=== PATIENT | male | born 1940 | race Caucasian/White ===

== ENCOUNTER 2017-03-22 01:37 | Emergency (ER) | payer MEDICARE, MEDICAID ==
[2017-03-22] MEDS ORDERED: HYDROmorphone 1 MG/ML Syringe IM ONE (01:51)
--- NOTE | 2017-03-22 02:19 | EDM.PDOC ---
[id number] [facility] Time Seen by Provider: 03/22/17 02:05 Source of Information: Reports: Patient, EMS History Limitations: Reports: No Limitations - History of Present Illness INITIAL COMMENTS - FREE TEXT/NARRATIVE: 76-year-old male was resting quietly at home when he awoke with a stabbing pain in his right neck and upper right shoulder posteriorly. It hurt to lay down but felt better sitting up. He has had this pain before but it usually resolves after a few minutes, tonight it persisted so he called the ambulance. He appears entirely comfortable, has no shortness of breath or diaphoresis, no nausea or vomiting. Location: Reports: Neck, Upper Extremity, Right (Posterior shoulder) Neck Pain Score (Numeric/FACES): 6 - Related Data Allergies Allergy/AdvReac Type Severity Reaction Status Date / Time Fish Containing Products Allergy Severe Anaphylactic Verified 03/22/17 02:11 Shock iodine Allergy Severe Anaphylactic Verified 03/22/17 02:11 Shock lisinopril AdvReac Intermediate Cough Verified 03/22/17 02:11 Home Meds: Home Meds Furosemide [Furosemide] 20 mg PO DAILY PRN 03/29/14 [History] Insulin Glarg,Human.Rec.Analog [Lantus] 50 unit SUBCUT BEDTIME 03/29/14 [History ] Insulin Lispro [Humalog] 15 unit SUBCUT TID 03/29/14 [History] Clopidogrel [Plavix] 75 mg PO DAILY 05/28/14 [History] Aspirin [Shoaib Chewable] 81 mg PO DAILY 08/11/14 [History] Metoprolol Succinate 25 mg PO DAILY 08/11/14 [History] Losartan [Cozaar] 25 mg PO DAILY 09/06/14 [History] diphenhydrAMINE [Benadryl] 50 mg PO BID PRN 09/06/14 [History] Social & Family History - Tobacco Use Smoking Status *Q: Former Smoker Years of Tobacco use: 35 Used Tobacco, but Quit: Yes Month Tobacco Last Used: 20 years Second Hand Smoke Exposure: No - Alcohol Use Days Per Week of Alcohol Use: 7 Number of Drinks Per Day: 3 Total Drinks Per Week: 21 - Recreational Drug Use Recreational Drug Use: No ED ROS GENERAL - Review of Systems Review Of Systems: See Below Constitutional: Denies: Fever, Chills Respiratory: Denies: Shortness of Breath Cardiovascular: Denies: Chest Pain, Lightheadedness, Palpitations GI/Abdominal: Denies: Abdominal Pain : Reports: Other (Despite being on peritoneal dialysis he does make urine) Skin: Reports: Pruritis (Chronic rash), Other (No jaundice) Neurological: Denies: Headache ED EXAM, UPPER BACK/NECK PAIN - Physical Exam Exam: See Below Exam Limited By: No Limitations General Appearance: Alert, No Apparent Distress Head Exam: Atraumatic Neck Exam: Paraspinous Muscle Tender (Patient has some tenderness to the paraspinous muscles of the right lower cervical spine extending into the trapezius on the right side) Cardiovascular/Respiratory: Regular Rate, Rhythm, Normal Breath Sounds, No Respiratory Distress Neurologic: Normal Mood/Affect Skin Exam: Other (Widespread superficial excoriations were present) Course - Vital Signs Last Recorded V/S: Last Vital Signs Temp 98 F 03/22/17 02:48 Pulse 90 03/22/17 02:48 Resp 16 03/22/17 02:48 BP 140/62 03/22/17 02:48 Pulse Ox 99 03/22/17 02:48 - Orders/Labs/Meds Meds: Medications Discontinued Medications Generic Name Dose Route Start Last Admin Trade Name Freddyq PRN Reason Stop Dose Admin Hydromorphone HCl 1 mg 03/22/17 01:51 03/22/17 02:16 Dilaudid IM 03/22/17 01:52 1 mg ONETIME ONE Administration - Re-Assessments/Exams Free Text/Narrative Re-Assessment/Exam: 03/22/17 02:18 Patient was given 1 mg of Dilaudid IM and allowed to rest and watch TV. He remained comfortable. 03/22/17 02:55 45 minutes after the Dilaudid injection he said he felt fine. He was discharged. Departure - Departure Time of Disposition: 07:12 Disposition: Home, Self-Care 01 Condition: good Clinical Impression: Muscle spasms of neck - Discharge Information Instructions: Muscle Cramps and Spasms, [id number] Referrals: PCP,None [Primary Care Provider] - Forms: ED Department Discharge Care Plan Goals: Continue your current medications as prescribed, rest and fluids were important. Recheck in 2-3 days if spasms persist, physical therapy may be beneficial.
[2017-03-22 02:49] VITALS: BP 140/62
== END 2017-03-22 07:12 | disposition home or self-care (01) ==
LOC: JP.ED 01:37
DX: M62.838 Other muscle spasm (principal); Z91.013 Allergy to seafood; Z88.8 Allergy status to other drugs, medicaments and biological substances; Z79.4 Long term (current) use of insulin; Z79.82 Long term (current) use of aspirin; Z79.899 Other long term (current) drug therapy; Z87.891 Personal history of nicotine dependence
CPT/HCPCS: 82962; 96372; 99284; J1170

== ENCOUNTER 2018-02-03 13:00 | Emergency (ER) | payer MEDICARE, MEDICAID ==
--- NOTE | 2018-02-03 13:32 | EDM.PDOC ---
ED HPI GENERAL MEDICAL PROBLEM - General Chief Complaint: Syncope Stated Complaint: [facility] Time Seen by Provider: 02/03/18 13:15 Source of Information: Reports: Patient, EMS, Old Records, RN History Limitations: Reports: No Limitations - History of Present Illness INITIAL COMMENTS - FREE TEXT/NARRATIVE: 77 yo male on dialysis was just starting his twice weekly 4 hour dialysis run today when he developed diaphoresis and weakness. The lights got blurry and he has some L calf cramping. His run was cut short after about 90 minutes due to his sx's. He had an [place] in the distant past with stenting. He has had no heart issues since getting the stents. His BS at dialysis never got below 100, he does get sx's from hypoglycemia when he is at or below 60. He was given some sugar at dialysis and it did not make him feel any better. Now in the ER via EMS he no longer has diaphoresis, but continues to feel weak. He denies chest pain. Onset: Today Onset Date: 02/03/18 Onset Time: 11:30 Duration: Hour(s): (2), Improving Location: Reports: Generalized Quality: Reports: Other (no pain except for the muscle cramps in his L calf. ) Severity: Moderate Improves with: Reports: Other (? time) Worsens with: Reports: Other (unknown) Context: Reports: Other (dialysis patient with known CAD) Associated Symptoms: Reports: Diaphoresis, Weakness. Denies: Confusion, Chest Pain, Cough, Fever/Chills, Headaches, Nausea/Vomiting, Shortness of Breath Treatments CYLINDER HONER: Reports: Other (see below) (was given candy at dialysis) Denies Pain Score (Numeric/FACES): 0 - Related Data Allergies Allergy/AdvReac Type Severity Reaction Status Date / Time Fish Containing Products Allergy Severe Anaphylactic Verified 02/03/18 13:22 Shock iodine Allergy Severe Anaphylactic Verified 02/03/18 13:22 Shock benazepril [From Lotensin] Allergy Cough Verified 02/03/18 13:29 lisinopril AdvReac Intermediate Cough Verified 02/03/18 13:22 Home Meds: Home Meds Furosemide 20 mg PO DAILY PRN 03/29/14 [History] Insulin Glarg,Human.Rec.Analog [Lantus] 35 - 40 unit SUBCUT BEDTIME 03/29/14 [ History] Insulin Lispro [Humalog] 15 unit SUBCUT TID 03/29/14 [History] Clopidogrel [Plavix] 25 mg PO ASDIRECTED 05/28/14 [History] Aspirin [Shoaib Chewable] 81 mg PO ASDIRECTED 08/11/14 [History] Metoprolol Succinate 25 mg PO DAILY 08/11/14 [History] Losartan [Cozaar] 25 mg PO DAILY 09/06/14 [History] diphenhydrAMINE [Benadryl] 50 mg PO BID PRN 09/06/14 [History] Carvedilol [Coreg] 12.5 mg PO ASDIRECTED 02/03/18 [History] Latanoprost 1 drop TOP BID 02/03/18 [History] Prednisone [IJD: Prednisone] 10 mg PO DAILY 02/03/18 [History] Past Medical History HEENT History: Reports: Glaucoma Cardiovascular History: Reports: Stents Genitourinary History: Reports: Acute Renal Failure, Dialysis Endocrine/Metabolic History: Reports: Diabetes, Type II - Infectious Disease History Infectious Disease History: Reports: Chicken Pox - Past Surgical History HEENT Surgical History: Reports: Visual Musculoskeletal Surgical History: Reports: Amputation Social & Family History - Tobacco Use Smoking Status *Q: Former Smoker Years of Tobacco use: 35 Used Tobacco, but Quit: Yes Month/Year Tobacco Last Used: 20 years Second Hand Smoke Exposure: No - Caffeine Use Caffeine Use: Reports: Coffee, Soda - Alcohol Use Days Per Week of Alcohol Use: 7 Number of Drinks Per Day: 3 Total Drinks Per Week: 21 - Recreational Drug Use Recreational Drug Use: No ED ROS GENERAL - Review of Systems Review Of Systems: See Below Constitutional: Reports: Weakness, Diaphoresis. Denies: Fever, Chills, Night Sweats HEENT: Reports: No Symptoms Respiratory: Reports: No Symptoms Cardiovascular: Reports: Lightheadedness Endocrine: Reports: No Symptoms GI/Abdominal: Reports: No Symptoms : Reports: No Symptoms Musculoskeletal: Reports: No Symptoms Skin: Reports: No Symptoms Neurological: Reports: No Symptoms - Physical Exam Exam: See Below Exam Limited By: No Limitations General Appearance: Alert, WD/WN, No Apparent Distress Eye Exam: Bilateral Eye: Normal Inspection Ears: Normal External Exam, Normal Canal, Hearing Grossly Normal, Normal TMs Nose: Normal Inspection, Normal Mucosa, No Blood Throat/Mouth: Normal Inspection, Normal Lips, Normal Oropharynx, Normal Voice, No Airway Compromise Head Exam: Atraumatic, Normocephalic Neck: Normal Inspection, Supple, Non-Tender Respiratory/Chest: No Respiratory Distress, Lungs Clear, Normal Breath Sounds, No Accessory Muscle Use, Chest Non-Tender Cardiovascular: Regular Rate, Rhythm, No Edema GI/Abdominal: Normal Bowel Sounds, Soft, Non-Tender Neuro Exam (Abbreviated): Alert, Oriented, CN II-XII Intact, Normal Cognition, No Motor/Sensory Deficits Extremities: Normal Range of Motion, Non-Tender, No Pedal Edema, Other (R BKA) Psychiatric: Normal Affect, Normal Mood Skin Exam: Warm, Dry, Intact, Normal Color, No Rash EKG INTERPRETATION EKG Date: 02/03/18 Time: 12:55 Rhythm: NSR Rate (Beats/Min): 75 [place]: Normal P-Wave: Present QRS: Normal ST-T: Normal QT: Normal Comparison: No Change Course - Vital Signs Text/Narrative:: Feeling much better after 500 ml of NS IV. Last Recorded V/S: Last Vital Signs Temp 36.2 C 02/03/18 13:55 Pulse 86 02/03/18 13:55 Resp 14 02/03/18 13:55 BP 124/68 02/03/18 15:40 Pulse Ox 100 02/03/18 13:55 - Orders/Labs/Meds Orders: Active Orders 24 hr Category Date Time Status Cardiac Monitoring [RC] .As Directed Care 02/03/18 13:25 Active EKG Documentation Completion [RC] ASDIRECTED Care 02/03/18 13:26 Active UA W/MICROSCOPIC [URIN] Stat Lab 02/03/18 13:25 Ordered EKG 12 Lead [EK] Routine Ther 02/03/18 13:26 Stop Req Labs: Laboratory Tests 02/03/18 02/03/18 Range/Units 13:30 13:30 WBC 8.3 (4.5-11.0) K/uL RBC 4.15 L (4.30-5.90) M/uL Hgb 12.3 (12.0-15.0) g/dL Hct 39.0 L (40.0-54.0) % MCV 94 (80-98) fL MCH 30 (27-31) pg MCHC 32 (32-36) % Plt Count 244 (150-400) K/uL Sodium 132 L (140-148) mmol/L Potassium 4.5 (3.6-5.2) mmol/L Chloride 100 (100-108) mmol/L Carbon Dioxide 27 (21-32) mmol/L Anion Gap 9.5 (5.0-14.0) mmol/L BUN 39 H (7-18) mg/dL Creatinine 3.4 H (0.8-1.3) mg/dL Est Cr Clr Drug Dosing 19.69 mL/min Estimated GFR (MDRD) 18 L (>60) Glucose 102 (74-106) mg/dL Calcium 8.1 L (8.5-10.1) mg/dL Magnesium 1.8 (1.8-2.4) mg/dL Troponin I < 0.017 (0.000-0.056) ng/mL Meds: Medications Discontinued Medications Generic Name Dose Route Start Last Admin Trade Name Freq PRN Reason Stop Dose Admin Sodium Chloride 500 mls @ 1,000 mls/hr 02/03/18 14:04 Normal Saline IV 02/03/18 14:33 .BOLUS ONE Sodium Chloride 1,000 mls @ 1,000 mls/hr 02/03/18 14:46 02/03/18 14:49 Normal Saline IV 02/03/18 15:45 1,000 mls/hr .BOLUS ONE Administration Departure - Departure Time of Disposition: 15:46 Disposition: Home, Self-Care 01 Condition: Good Clinical Impression: Mild dehydration - Discharge Information Referrals: Xander Machado MD [Primary Care Provider] - Forms: ED Department Discharge - My Orders Last 24 Hours: My Active Orders 02/03/18 13:25 Cardiac Monitoring [RC] .As Directed UA W/MICROSCOPIC [URIN] Stat 02/03/18 13:26 EKG Documentation Completion [RC] ASDIRECTED EKG 12 Lead [EK] Routine - Assessment/Plan Last 24 Hours: My Active Orders 02/03/18 13:25 Cardiac Monitoring [RC] .As Directed UA W/MICROSCOPIC [URIN] Stat 02/03/18 13:26 EKG Documentation Completion [RC] ASDIRECTED EKG 12 Lead [EK] Routine
[2018-02-03] MEDS ORDERED: Sodium Chloride 0.9% 500 ML IV ONE (14:04)
[2018-02-03] MEDS ORDERED: Sodium Chloride 0.9% 1,000 ML IV ONE (14:46)
[2018-02-03 15:49] VITALS: BP 126/70
== END 2018-02-03 16:00 | disposition home or self-care (01) ==
LOC: JP.ED 13:00
DX: E86.0 Dehydration (principal); E11.9 Type 2 diabetes mellitus without complications; Z79.4 Long term (current) use of insulin; Z79.899 Other long term (current) drug therapy; Z91.018 Allergy to other foods; Z88.8 Allergy status to other drugs, medicaments and biological substances; Z87.891 Personal history of nicotine dependence; Z99.2 Dependence on renal dialysis
CPT/HCPCS: 36415; 80048; 83735; 84484; 85027; 96360; 99284; J7040

== ENCOUNTER 2018-03-11 14:48 | Emergency (ER) | payer MEDICARE, MEDICAID ==
[2018-03-11 15:17] VITALS: BP 116/52
[2018-03-11] MEDS ORDERED: Sodium Chloride 0.9% 1,000 ML IV SCH (15:45)
--- NOTE | 2018-03-11 17:16 | EDM.PDOC ---
<Augusta Villaseñor - Last Filed: 03/11/18 17:35> ED HPI GENERAL MEDICAL PROBLEM - General Chief Complaint: General Time Seen by Provider: 03/11/18 15:15 Source of Information: Reports: Patient History Limitations: Reports: No Limitations - History of Present Illness INITIAL COMMENTS - FREE TEXT/NARRATIVE: Pt is not feeling well today. He states for the past few days he is vomiting after he eats. He is feeling very fatiqued. He does have diabetes and he has had one ambutation of the rt lower leg. He has pain in both of his shoulders. He has not had chest pain. Onset: Gradual, Other ( He has not been doing well for the past 2-3 days. ) Duration: Day(s): Location: Reports: Abdomen, Other ( Pt is vomiting after he eats. ) Associated Symptoms: Reports: Nausea/Vomiting - Related Data Allergies Allergy/AdvReac Type Severity Reaction Status Date / Time Fish Containing Products Allergy Severe Anaphylactic Verified 03/11/18 15:15 Shock iodine Allergy Severe Anaphylactic Verified 03/11/18 15:15 Shock benazepril [From Lotensin] Allergy Cough Verified 03/11/18 15:15 lisinopril AdvReac Intermediate Cough Verified 03/11/18 15:15 Home Meds: Home Meds Furosemide 20 mg PO DAILY PRN 03/29/14 [History] Insulin Glarg,Human.Rec.Analog [Lantus] 35 - 40 unit SUBCUT BEDTIME 03/29/14 [ History] Insulin Lispro [Humalog] 15 unit SUBCUT TID 03/29/14 [History] Clopidogrel [Plavix] 25 mg PO ASDIRECTED 05/28/14 [History] Aspirin [Shoaib Chewable] 81 mg PO ASDIRECTED 08/11/14 [History] Metoprolol Succinate 25 mg PO DAILY 08/11/14 [History] Losartan [Cozaar] 25 mg PO DAILY 09/06/14 [History] diphenhydrAMINE [Benadryl] 50 mg PO BID PRN 09/06/14 [History] Carvedilol [Coreg] 12.5 mg PO ASDIRECTED 02/03/18 [History] Latanoprost 1 drop TOP BID 02/03/18 [History] Prednisone [IJD: Prednisone] 10 mg PO DAILY 03/30/18 [History] Past Medical History HEENT History: Reports: Glaucoma Cardiovascular History: Reports: Stents Genitourinary History: Reports: Acute Renal Failure, Dialysis Endocrine/Metabolic History: Reports: Diabetes, Type II - Infectious Disease History Infectious Disease History: Reports: Chicken Pox - Past Surgical History HEENT Surgical History: Reports: Visual GI Surgical History: Reports: Colonoscopy Musculoskeletal Surgical History: Reports: Amputation Social & Family History - Tobacco Use Smoking Status *Q: Never Smoker Years of Tobacco use: 35 Packs/Tins Daily: 1 Used Tobacco, but Quit: Yes Month/Year Tobacco Last Used: 20 years Second Hand Smoke Exposure: No - Caffeine Use Caffeine Use: Reports: Coffee, Soda - Alcohol Use Days Per Week of Alcohol Use: 7 Number of Drinks Per Day: 3 Total Drinks Per Week: 21 - Recreational Drug Use Recreational Drug Use: No ED ROS GENERAL - Review of Systems Review Of Systems: See Below Constitutional: Reports: No Symptoms, Diaphoresis HEENT: Reports: No Symptoms Respiratory: Reports: No Symptoms Cardiovascular: Reports: No Symptoms Endocrine: Reports: No Symptoms GI/Abdominal: Reports: Nausea, Vomiting, Other ( Pt has been vomiting after he eats) : Reports: No Symptoms Musculoskeletal: Reports: No Symptoms Skin: Reports: No Symptoms Neurological: Reports: Headache, Other (pt has had a low grade headache. ) Psychiatric: Reports: Anxiety ED EXAM, GENERAL - Physical Exam Exam: See Below Free Text/Narrative:: pt is alert and oriented with a bs of 50. He has shoulder pain. He had an Mi which only presented with arm pain. Exam Limited By: No Limitations General Appearance: Alert, No Apparent Distress, Other (pupils are equal and reactive. ) Ears: Normal TMs Nose: Normal Inspection Throat/Mouth: Normal Inspection Head: Atraumatic Neck: Normal Inspection Respiratory/Chest: No Respiratory Distress Cardiovascular: Regular Rate, Rhythm GI/Abdominal: Soft, Non-Tender Rectal (Males) Exam: Deferred Back Exam: Normal Inspection Extremities: Other ( pt had an amputatipon on the rt and he has mild edema on the left. ) Neurological: Alert, Oriented, Normal Cognition Course - Vital Signs Last Recorded V/S: Last Vital Signs Temp 97.5 F 03/11/18 15:24 Pulse 82 03/11/18 15:24 Resp 16 03/11/18 15:24 BP 116/52 L 05/05/18 15:24 Pulse Ox 98 03/11/18 15:24 - Orders/Labs/Meds Orders: Active Orders 24 hr Category Date Time Status Cardiac Monitoring [RC] .As Directed Care 03/11/18 15:39 Active EKG Documentation Completion [RC] ASDIRECTED Care 03/11/18 15:26 Active UA W/MICROSCOPIC [URIN] Urgent Lab 03/11/18 15:26 Ordered Sodium Chloride 0.9% [Normal Saline] 1,000 ml Med 03/11/18 15:45 Active IV ASDIRECTED EKG 12 Lead [EK] Routine Ther 03/11/18 15:26 Ordered Medication Orders Sodium Chloride (Normal Saline) 1,000 mls @ 999 mls/hr IV ASDIRECTED AUBREY Last Admin: 03/11/18 16:00 Dose: 999 mls/hr Labs: Laboratory Tests 03/11/18 03/11/18 03/11/18 Range/Units 15:37 15:37 15:37 WBC 9.9 (4.5-11.0) K/uL RBC 4.41 (4.30-5.90) M/uL Hgb 13.5 (12.0-15.0) g/dL Hct 42.3 (40.0-54.0) % MCV 96 (80-98) fL MCH 31 (27-31) pg MCHC 32 (32-36) % Plt Count 319 (150-400) K/uL Neut % (Auto) 65 (36-66) % Lymph % (Auto) 16 L (24-44) % [place] % (Auto) 9 H (2-6) % Eos % (Auto) 10 H (2-4) % Baso % (Auto) 1 (0-1) % Sodium 139 L (140-148) mmol/L Potassium 4.2 (3.6-5.2) mmol/L Chloride 101 (100-108) mmol/L Carbon Dioxide 29 (21-32) mmol/L Anion Gap 13.2 (5.0-14.0) mmol/L BUN 21 H (7-18) mg/dL Creatinine 4.9 H* (0.8-1.3) mg/dL Est Cr Clr Drug Dosing 13.66 mL/min Estimated GFR (MDRD) 12 L (>60) Glucose 56 L (74-106) mg/dL Calcium 8.5 (8.5-10.1) mg/dL Total Bilirubin 0.7 D (0.2-1.0) mg/dL AST 16 (15-37) U/L ALT 16 (12-78) U/L Alkaline Phosphatase 85 (46-116) U/L Troponin I 0.013 (0.000-0.056) ng/mL C-Reactive Protein (0.0-0.3) mg/dL Total Protein 6.9 (6.4-8.2) g/dL Albumin 3.5 (3.4-5.0) g/dL Globulin 3.4 (2.3-3.5) g/dL Albumin/Globulin Ratio 1.0 L (1.2-2.2) TSH, Ultra Sensitive (0.358-3.740) uIU/mL 03/11/18 03/11/18 03/11/18 Range/Units 15:37 17:40 18:35 WBC (4.5-11.0) K/uL RBC (4.30-5.90) M/uL Hgb (12.0-15.0) g/dL Hct (40.0-54.0) % MCV (80-98) fL MCH (27-31) pg MCHC (32-36) % Plt Count (150-400) K/uL Neut % (Auto) (36-66) % Lymph % (Auto) (24-44) % [place] % (Auto) (2-6) % Eos % (Auto) (2-4) % Baso % (Auto) (0-1) % Sodium (140-148) mmol/L Potassium (3.6-5.2) mmol/L Chloride (100-108) mmol/L Carbon Dioxide (21-32) mmol/L Anion Gap (5.0-14.0) mmol/L BUN (7-18) mg/dL Creatinine (0.8-1.3) mg/dL Est Cr Clr Drug Dosing mL/min Estimated GFR (MDRD) (>60) Glucose (74-106) mg/dL Calcium (8.5-10.1) mg/dL Total Bilirubin (0.2-1.0) mg/dL AST (15-37) U/L ALT (12-78) U/L Alkaline Phosphatase (46-116) U/L Troponin I < 0.017 (0.000-0.056) ng/mL C-Reactive Protein 0.77 H (0.0-0.3) mg/dL Total Protein (6.4-8.2) g/dL Albumin (3.4-5.0) g/dL Globulin (2.3-3.5) g/dL Albumin/Globulin Ratio (1.2-2.2) TSH, Ultra Sensitive 1.167 (0.358-3.740) uIU/mL Meds: Medications Generic Name Dose Route Start Last Admin Trade Name Freq PRN Reason Stop Dose Admin Sodium Chloride 1,000 mls @ 999 mls/hr 03/11/18 15:45 03/11/18 16:00 Normal Saline IV 999 mls/hr ASDIRECTED AUBREY Administration Discontinued Medications Generic Name Dose Route Start Last Admin Trade Name Freq PRN Reason Stop Dose Admin Pantoprazole Sodium 40 mg 03/11/18 17:44 03/11/18 18:26 Protonix Iv IVPUSH 03/11/18 17:45 40 mg ONETIME ONE Administration Departure - Departure Time of Disposition: 17:09 Disposition: Home, Self-Care 01 Clinical Impression: Weakness Nausea and vomiting Qualifiers: Vomiting type: unspecified Vomiting Intractability: non-intractable Qualified Code(s): R11.2 - Nausea with vomiting, unspecified - Discharge Information Instructions: Nausea and Vomiting, Adult Referrals: Xander Machado MD [Primary Care Provider] - Forms: ED Department Discharge Care Plan Goals: Consider 20 mg of omeprazole daily to settle your stomach. Resume your other regular medications and recheck with your regular doctor next week if not improving satisfactorily. Advance diet as tolerated. <Fabricio Castrejon - Last Filed: 03/11/18 19:07> Course - Re-Assessments/Exams Free Text/Narrative Re-Assessment/Exam: 03/11/18 19:05 77-year-old male evaluated and treated by Dr. Villaseñor. Care was turned over pending a second troponin, which returned 0. He was recommended to the patient he should take 20 mg of omeprazole daily and follow up with his primary care next week. Departure - Departure Condition: Good
[2018-03-11] MEDS ORDERED: Pantoprazole 40 MG Vial IVPUSH ONE (17:44)
== END 2018-03-11 19:28 | disposition home or self-care (01) ==
LOC: JP.ED 14:48
DX: R11.2 Nausea with vomiting, unspecified (principal); E11.9 Type 2 diabetes mellitus without complications; Z87.891 Personal history of nicotine dependence; Z79.4 Long term (current) use of insulin; Z79.899 Other long term (current) drug therapy; Z91.013 Allergy to seafood; Z88.8 Allergy status to other drugs, medicaments and biological substances
CPT/HCPCS: 36415; 80053; 82962; 84443; 84484; 85025; 86140; 93005; 96361; 96374; 99284; C9113; J7040

== ENCOUNTER 2018-05-01 13:27 | Emergency (ER) | payer MEDICARE, MEDICAID ==
[2018-05-01 13:44] VITALS: BP 174/69
[2018-05-01] MEDS ORDERED: Bisacodyl 10 MG Supp RECTAL ONE (14:10)
[2018-05-01] MEDS ORDERED: Ondansetron 4 MG Tab.DIS PO ONE (14:10)
--- NOTE | 2018-05-01 14:16 | EDM.PDOC ---
ED HPI GENERAL MEDICAL PROBLEM - General Chief Complaint: General Stated Complaint: NOT FEELING WELL Time Seen by Provider: 05/01/18 14:00 Source of Information: Reports: Patient, Old Records, RN History Limitations: Reports: Other (poor historian) - History of Present Illness INITIAL COMMENTS - FREE TEXT/NARRATIVE: 77 yo male with CRF and who normally get dialyzed on Mondays and Fridays presents with onset of diarrhea, nausea, and vomiting since last Tuesday. The diarrhea has resolved and he has no BM since Tuesday. Is not vomiting for the past couple of days. Feels weak. Has not notified or seen his primary about this. He skipped dialysis on Tuesday and today due to not feeling well. BP running high for him. No fevers. Onset: Sudden Onset Date: 04/28/18 Duration: Day(s):, Waxing/Waning Location: Reports: Abdomen Quality: Reports: Other (mild cramping) Severity: Mild Improves with: Reports: None Worsens with: Reports: None (Has been able to eat.) Context: Reports: Other (CRF on 2 per week dialysis tx's.) Associated Symptoms: Reports: Nausea/Vomiting, Weakness. 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: Other (see below) (none) - Related Data Allergies Allergy/AdvReac Type Severity Reaction Status Date / Time Fish Containing Products Allergy Severe Anaphylactic Verified 03/11/18 15:15 Shock iodine Allergy Severe Anaphylactic Verified 03/11/18 15:15 Shock benazepril [From Lotensin] Allergy Cough Verified 03/11/18 15:15 lisinopril AdvReac Intermediate Cough Verified 03/11/18 15:15 Home Meds: Home Meds Furosemide 20 mg PO DAILY PRN 03/29/14 [History] Insulin Glarg,Human.Rec.Analog [Lantus] 35 - 40 unit SUBCUT BEDTIME 03/29/14 [ History] Insulin Lispro [Humalog] 15 unit SUBCUT TID 03/29/14 [History] Aspirin [Shoaib Chewable] 81 mg PO ASDIRECTED 08/11/14 [History] diphenhydrAMINE [Benadryl] 50 mg PO BID PRN 09/06/14 [History] Latanoprost 1 drop TOP BID 02/03/18 [History] Prednisone [IJD: Prednisone] 10 mg PO ASDIRECTED 02/03/18 [History] Ondansetron [Zofran ODT] 4 mg PO Q6H PRN #7 tab.dis 05/01/18 [Rx] Pyridostigmine [Mestinon] 90 mg PO TID 05/01/18 [History] Past Medical History HEENT History: Reports: Glaucoma Cardiovascular History: Reports: Stents Genitourinary History: Reports: Acute Renal Failure, Dialysis Endocrine/Metabolic History: Reports: Diabetes, Type II - Infectious Disease History Infectious Disease History: Reports: Chicken Pox - Past Surgical History HEENT Surgical History: Reports: Visual GI Surgical History: Reports: Colonoscopy Musculoskeletal Surgical History: Reports: Amputation Social & Family History - Tobacco Use Smoking Status *Q: Former Smoker Used Tobacco, but Quit: Yes Month/Year Tobacco Last Used: 80 - Caffeine Use Caffeine Use: Reports: Coffee - Alcohol Use Days Per Week of Alcohol Use: 7 Number of Drinks Per Day: 1 Total Drinks Per Week: 7 - Recreational Drug Use Recreational Drug Use: No ED ROS GENERAL - Review of Systems Review Of Systems: See Below Constitutional: Reports: Malaise, Weakness. Denies: Fever HEENT: Reports: No Symptoms Respiratory: Reports: No Symptoms Cardiovascular: Reports: No Symptoms Endocrine: Reports: No Symptoms GI/Abdominal: Reports: Abdominal Pain (mild, intermittent cramping), Constipation (since Tuesday), Diarrhea (now resolved), Nausea. Denies: Black Stool, Bloody Stool, Hematemesis, Hematochezia, Melena, Vomiting : Reports: No Symptoms Musculoskeletal: Reports: No Symptoms Skin: Reports: No Symptoms Neurological: Reports: No Symptoms Psychiatric: Reports: No Symptoms ED EXAM, GENERAL - Physical Exam Exam: See Below Exam Limited By: No Limitations General Appearance: Alert, WD/WN, No Apparent Distress Eye Exam: Bilateral Eye: Normal Inspection Ears: Normal External Exam, Normal Canal, Hearing Grossly Normal, Normal TMs Ear Exam: Bilateral Ear: Auricle Normal, Canal Normal, TM normal Nose: Normal Inspection, Normal Mucosa, No Blood Throat/Mouth: Normal Inspection, Normal Lips, Normal Oropharynx, Normal Voice, No Airway Compromise Head: Atraumatic, Normocephalic Neck: Normal Inspection, Supple Respiratory/Chest: No Respiratory Distress, Lungs Clear, Normal Breath Sounds, No Accessory Muscle Use Cardiovascular: Regular Rate, Rhythm, No Edema GI/Abdominal: Normal Bowel Sounds, Soft, Non-Tender, No Distention Back Exam: Normal Inspection. No: CVA Tenderness (R), CVA Tenderness (L) Extremities: Normal Inspection, Normal Range of Motion, Non-Tender, No Pedal Edema Neurological: Alert, Oriented, CN II-XII Intact, Normal Cognition, No Motor/ Sensory Deficits Psychiatric: Normal Affect, Normal Mood Skin Exam: Warm, Dry, Intact, Normal Color, No Rash Lymphatic: No Adenopathy Course - Vital Signs Last Recorded V/S: Last Vital Signs Temp 35.8 C 05/01/18 13:44 Pulse 81 05/01/18 13:44 Resp 18 05/01/18 13:44 BP 174/69 H 05/01/18 13:44 Pulse Ox 98 05/01/18 13:44 Orthostatic Blood Pressure [ 148/59 Standing] Orthostatic Blood Pressure [ 144/61 Sitting] Orthostatic Blood Pressure [ 144/57 Supine] - Orders/Labs/Meds Orders: Active Orders 24 hr Category Date Time Status Orthostatic Vital Signs [RC] ASDIRECTED Care 05/01/18 14:21 Active UA W/MICROSCOPIC [URIN] Stat Lab 05/01/18 13:37 Ordered Labs: Laboratory Tests 05/01/18 05/01/18 Range/Units 13:37 13:37 WBC 8.9 (4.5-11.0) K/uL RBC 4.38 (4.30-5.90) M/uL Hgb 13.5 (12.0-15.0) g/dL Hct 40.5 (40.0-54.0) % MCV 93 (80-98) fL MCH 31 (27-31) pg MCHC 33 (32-36) % Plt Count 314 (150-400) K/uL Sodium 134 L (140-148) mmol/L Potassium 5.0 (3.6-5.2) mmol/L Chloride 100 (100-108) mmol/L Carbon Dioxide 25 (21-32) mmol/L Anion Gap 14.0 (5.0-14.0) mmol/L BUN 81 H* D (7-18) mg/dL Creatinine 5.5 H* (0.8-1.3) mg/dL Est Cr Clr Drug Dosing 12.17 mL/min Estimated GFR (MDRD) 10 L (>60) Glucose 129 H (74-106) mg/dL Calcium 8.1 L (8.5-10.1) mg/dL Troponin I 0.019 (0.000-0.056) ng/mL Meds: Medications Discontinued Medications Generic Name Dose Route Start Last Admin Trade Name Freq PRN Reason Stop Dose Admin Bisacodyl 10 mg 05/01/18 14:10 05/01/18 14:18 Dulcolax RECTAL 05/01/18 14:11 10 mg ONETIME ONE Administration Ondansetron HCl 4 mg 05/01/18 14:10 05/01/18 14:18 Zofran Odt PO 05/01/18 14:11 4 mg ONETIME ONE Administration Departure - Departure Time of Disposition: 14:50 Disposition: Home, Self-Care 01 Condition: Fair Clinical Impression: Nausea CRF (chronic renal failure) Qualifiers: Chronic kidney disease stage: stage 5 Qualified Code(s): N18.5 - Chronic kidney disease, stage 5 - Discharge Information Prescriptions: Ondansetron [Zofran ODT] 4 mg PO Q6H PRN #7 tab.dis PRN Reason: Nausea Referrals: PCP,None [Primary Care Provider] - Forms: ED Department Discharge - My Orders Last 24 Hours: My Active Orders 05/01/18 13:37 UA W/MICROSCOPIC [URIN] Stat 05/01/18 14:21 Orthostatic Vital Signs [RC] ASDIRECTED - Assessment/Plan Last 24 Hours: My Active Orders 05/01/18 13:37 UA W/MICROSCOPIC [URIN] Stat 05/01/18 14:21 Orthostatic Vital Signs [RC] ASDIRECTED
== END 2018-05-01 15:20 | disposition home or self-care (01) ==
LOC: JP.ED 13:27
DX: R11.2 Nausea with vomiting, unspecified (principal); E11.22 Type 2 diabetes mellitus with diabetic chronic kidney disease; N18.5 Chronic kidney disease, stage 5; Z91.013 Allergy to seafood; Z88.8 Allergy status to other drugs, medicaments and biological substances; Z79.4 Long term (current) use of insulin; Z79.82 Long term (current) use of aspirin; Z79.899 Other long term (current) drug therapy; Z87.891 Personal history of nicotine dependence
CPT/HCPCS: 36415; 80048; 84484; 85027; 99284; A9270

== ENCOUNTER 2018-07-03 19:48 | Emergency (ER) | payer MEDICARE, MEDICAID ==
[2018-07-03] MEDS ORDERED: Sodium Chloride 0.9% 1,000 ML IV ONE (20:42)
[2018-07-03] MEDS ORDERED: Sodium Chloride 0.9% 10 ML Syringe FLUSH PRN (20:42)
[2018-07-03] MEDS ORDERED: Ondansetron 4 MG/2 ML SDV IVPUSH ONE (21:15)
[2018-07-03 21:25] VITALS: BP 139/64
--- NOTE | 2018-07-04 00:03 | EDM.PDOC ---
ED HPI GENERAL MEDICAL PROBLEM - General Chief Complaint: General Stated Complaint: ILLNESS Time Seen by Provider: 07/03/18 19:55 Source of Information: Reports: Patient History Limitations: Reports: No Limitations - History of Present Illness INITIAL COMMENTS - FREE TEXT/NARRATIVE: After dialysis today this patient began to feel weak. He's had loose but not watery stools for the past 3 days about 30 min after he eats. Therefore he hasn' t been eating. During dialysis BP dropped briefly. Epidosed seatiness. Weak ever since. HX [place] 2013, 2 stents ok since. Dialysis mon and fri. Some kidney function. Feels hungry. - Related Data Allergies Allergy/AdvReac Type Severity Reaction Status Date / Time Fish Containing Products Allergy Severe Anaphylactic Verified 03/11/18 15:15 Shock iodine Allergy Severe Anaphylactic Verified 03/11/18 15:15 Shock benazepril [From Lotensin] Allergy Cough Verified 03/11/18 15:15 lisinopril AdvReac Intermediate Cough Verified 03/11/18 15:15 Home Meds: Home Meds Furosemide 20 mg PO DAILY PRN 03/29/14 [History] Insulin Glarg,Human.Rec.Analog [Lantus] 35 - 40 unit SUBCUT BEDTIME 03/29/14 [ History] Insulin Lispro [Humalog] 15 unit SUBCUT TID 03/29/14 [History] Aspirin [Shoaib Chewable] 81 mg PO ASDIRECTED 08/11/14 [History] diphenhydrAMINE [Benadryl] 50 mg PO BID PRN 09/06/14 [History] Latanoprost 1 drop TOP BID 02/03/18 [History] Prednisone [IJD: Prednisone] 10 mg PO ASDIRECTED 02/03/18 [History] Ondansetron [Zofran ODT] 4 mg PO Q6H PRN #7 tab.dis 05/01/18 [Rx] Pyridostigmine [Mestinon] 90 mg PO TID 05/01/18 [History] Past Medical History HEENT History: Reports: Glaucoma Cardiovascular History: Reports: Stents Genitourinary History: Reports: Acute Renal Failure, Dialysis Endocrine/Metabolic History: Reports: Diabetes, Type II - Infectious Disease History Infectious Disease History: Reports: MRSA - Past Surgical History HEENT Surgical History: Reports: Visual GI Surgical History: Reports: Colonoscopy Musculoskeletal Surgical History: Reports: Amputation Social & Family History - Tobacco Use Smoking Status *Q: Never Smoker Second Hand Smoke Exposure: No - Caffeine Use Caffeine Use: Reports: Coffee - Alcohol Use Days Per Week of Alcohol Use: 7 Number of Drinks Per Day: 2 Total Drinks Per Week: 14 Date of Last Drink: 07/02/18 - Recreational Drug Use Recreational Drug Use: No ED ROS GENERAL - Review of Systems Review Of Systems: ROS reveals no pertinent complaints other than HPI. ED EXAM, GENERAL - Physical Exam Exam: See Below Exam Limited By: No Limitations General Appearance: Alert, WD/WN, No Apparent Distress Eye Exam: Bilateral Eye: EOMI, PERRL Nose: Normal Inspection Throat/Mouth: Normal Oropharynx Head: Atraumatic Neck: Supple Respiratory/Chest: Lungs Clear Cardiovascular: Regular Rate, Rhythm, No Murmur GI/Abdominal: Soft, Non-Tender Back Exam: Normal Inspection Extremities: Normal Inspection Neurological: Alert, Oriented Psychiatric: Normal Affect Skin Exam: Warm, Dry Course - Vital Signs Last Recorded V/S: Last Vital Signs Temp 36.4 C 07/03/18 20:02 Pulse 90 07/03/18 20:02 Resp 16 07/03/18 21:24 BP 139/64 07/03/18 21:24 Pulse Ox 96 07/03/18 21:24 - Orders/Labs/Meds Orders: Active Orders 24 hr Category Date Time Status EKG Documentation Completion [RC] ASDIRECTED Care 07/03/18 20:46 Active Chest 2V [CR] Urgent Exams 07/03/18 20:42 Taken UA W/MICROSCOPIC [URIN] Urgent Lab 07/03/18 20:42 Ordered Sodium Chloride 0.9% [Saline Flush] Med 07/03/18 20:42 Active 10 ml FLUSH ASDIRECTED PRN Saline Lock Insert [OM.PC] Urgent Oth 07/03/18 20:42 Ordered EKG 12 Lead [EK] Urgent Ther 07/03/18 20:46 Ordered Medication Orders Sodium Chloride (Saline Flush) 10 ml FLUSH ASDIRECTED PRN PRN Reason: Keep Vein Open Labs: Laboratory Tests 07/03/18 07/03/18 07/03/18 Range/Units 20:52 20:52 22:12 WBC 7.7 (4.5-11.0) K/uL RBC 4.14 L (4.30-5.90) M/uL Hgb 12.6 (12.0-15.0) g/dL Hct 38.8 L (40.0-54.0) % MCV 94 (80-98) fL MCH 30 (27-31) pg MCHC 33 (32-36) % Plt Count 278 (150-400) K/uL Neut % (Auto) 81 H (36-66) % Lymph % (Auto) 8 L (24-44) % [place] % (Auto) 7 H (2-6) % Eos % (Auto) 3 (2-4) % Baso % (Auto) 1 (0-1) % Sodium 134 L (140-148) mmol/L Potassium 4.6 (3.6-5.2) mmol/L Chloride 98 L (100-108) mmol/L Carbon Dioxide 31 (21-32) mmol/L Anion Gap 9.6 (5.0-14.0) mmol/L BUN 17 D (7-18) mg/dL Creatinine 3.1 H (0.8-1.3) mg/dL Est Cr Clr Drug Dosing 21.25 mL/min Estimated GFR (MDRD) 20 L (>60) Glucose 145 H (74-106) mg/dL Calcium 8.3 L (8.5-10.1) mg/dL Total Bilirubin 1.0 (0.2-1.0) mg/dL AST 18 (15-37) U/L ALT 18 (12-78) U/L Alkaline Phosphatase 89 (46-116) U/L Troponin I < 0.017 (0.000-0.056) ng/mL Total Protein 6.7 (6.4-8.2) g/dL Albumin 3.3 L (3.4-5.0) g/dL Globulin 3.4 (2.3-3.5) g/dL Albumin/Globulin Ratio 1.0 L (1.2-2.2) Meds: Medications Generic Name Dose Route Start Last Admin Trade Name Freq PRN Reason Stop Dose Admin Sodium Chloride 10 ml 07/03/18 20:42 Saline Flush FLUSH ASDIRECTED PRN Keep Vein Open Discontinued Medications Generic Name Dose Route Start Last Admin Trade Name Freq PRN Reason Stop Dose Admin Sodium Chloride 1,000 mls @ 999 mls/hr 07/03/18 20:42 07/03/18 21:16 Normal Saline IV 07/03/18 21:42 999 mls/hr .BOLUS ONE Administration Ondansetron HCl 4 mg 07/03/18 21:15 07/03/18 21:20 Zofran IVPUSH 07/03/18 21:16 4 mg ONETIME ONE Administration - Re-Assessments/Exams Free Text/Narrative Re-Assessment/Exam: 07/04/18 00:01 Received 1 liter IV NS. also had snacks x 2. EKG shows old Inf [place], PAC's in couplets, no acute ischemia He's feeling much better at time of discharge. Departure - Departure Time of Disposition: 00:03 Disposition: Home, Self-Care 01 Condition: Fair Clinical Impression: Weakness generalized - Discharge Information Referrals: PCP,None [Primary Care Provider] - Additional Instructions: Your weakness may be due to poor food intake. It's ok to have loose stools after eating. Many people have a BM about 30 minutes after each meal and this is normal. If stools are just loose but not maged diarrhea then this is ok. If you do begin having diarrhea and it is persistent then talk with your doctor. - My Orders Last 24 Hours: My Active Orders 07/03/18 20:42 Chest 2V [CR] Urgent UA W/MICROSCOPIC [URIN] Urgent Sodium Chloride 0.9% [Saline Flush] 10 ml FLUSH ASDIRECTED PRN Saline Lock Insert [OM.PC] Urgent 07/03/18 20:46 EKG Documentation Completion [RC] ASDIRECTED EKG 12 Lead [EK] Urgent - Assessment/Plan Last 24 Hours: My Active Orders 07/03/18 20:42 Chest 2V [CR] Urgent UA W/MICROSCOPIC [URIN] Urgent Sodium Chloride 0.9% [Saline Flush] 10 ml FLUSH ASDIRECTED PRN Saline Lock Insert [OM.PC] Urgent 07/03/18 20:46 EKG Documentation Completion [RC] ASDIRECTED EKG 12 Lead [EK] Urgent
--- NOTE | 2018-07-04 08:32 | CR ---
CHEST: 2 view CLINICAL HISTORY:Chest pain COMPARISON:January 06, 2018 FINDINGS: Heart size and pulmonary vascularity are normal. Lung pérez are clear. There are atherosc lerotic changes in the aorta.. IMPRESSION: No acute cardiopulmonary process or significant change from prior study
== END 2018-07-04 00:22 | disposition home or self-care (01) ==
LOC: JP.ED 19:48
DX: R53.1 Weakness (principal); N17.9 Acute kidney failure, unspecified; E11.9 Type 2 diabetes mellitus without complications; Z88.8 Allergy status to other drugs, medicaments and biological substances; Z79.899 Other long term (current) drug therapy; Z79.4 Long term (current) use of insulin; Z79.82 Long term (current) use of aspirin; Z99.2 Dependence on renal dialysis
CPT/HCPCS: 36415; 71046; 80053; 84484; 85025; 93005; 96361; 96374; 99285; J2405; J7030

== ENCOUNTER 2018-07-28 18:32 | Emergency (ER) | payer MEDICARE, MEDICAID ==
[2018-07-28 18:50] VITALS: BP 129/57
--- NOTE | 2018-07-28 19:24 | EDM.PDOC ---
ED HPI GENERAL MEDICAL PROBLEM - General Chief Complaint: Gastrointestinal Problem Stated Complaint: HEMMEROIDS? Time Seen by Provider: 07/28/18 19:18 Source of Information: Reports: Patient History Limitations: Reports: No Limitations - History of Present Illness INITIAL COMMENTS - FREE TEXT/NARRATIVE: THis man was straining at stool and felt a golf ball sized lump in the rectum. He doesn't think it could be stool since he hasn't eaten any solid food in about a week. No pain. He's been on a liquid/soup/smoothie diet since dental extractions. Dialysis pt. Colonoscopy about 2 yrs ago. - Related Data Allergies Allergy/AdvReac Type Severity Reaction Status Date / Time Fish Containing Products Allergy Severe Anaphylactic Verified 03/11/18 15:15 Shock iodine Allergy Severe Anaphylactic Verified 03/11/18 15:15 Shock benazepril [From Lotensin] Allergy Cough Verified 03/11/18 15:15 lisinopril AdvReac Intermediate Cough Verified 03/11/18 15:15 Home Meds: Home Meds Furosemide 20 mg PO DAILY PRN 03/29/14 [History] Insulin Glarg,Human.Rec.Analog [Lantus] 35 - 40 unit SUBCUT BEDTIME 03/29/14 [ History] Insulin Lispro [Humalog] 15 unit SUBCUT TID 03/29/14 [History] Aspirin [Shoaib Chewable] 81 mg PO ASDIRECTED 08/11/14 [History] diphenhydrAMINE [Benadryl] 50 mg PO BID PRN 09/06/14 [History] Latanoprost 1 drop TOP BID 02/03/18 [History] Prednisone [IJD: Prednisone] 10 mg PO ASDIRECTED 02/03/18 [History] Ondansetron [Zofran ODT] 4 mg PO Q6H PRN #7 tab.dis 05/01/18 [Rx] Pyridostigmine [Mestinon] 90 mg PO TID 05/01/18 [History] Past Medical History HEENT History: Reports: Glaucoma Cardiovascular History: Reports: Stents Genitourinary History: Reports: Acute Renal Failure, Dialysis Endocrine/Metabolic History: Reports: Diabetes, Type II - Infectious Disease History Infectious Disease History: Reports: Chicken Pox, Measles, Mumps - Past Surgical History HEENT Surgical History: Reports: Visual GI Surgical History: Reports: Colonoscopy Musculoskeletal Surgical History: Reports: Amputation Social & Family History - Tobacco Use Smoking Status *Q: Former Smoker Used Tobacco, but Quit: Yes Month/Year Tobacco Last Used: many years ago - Caffeine Use Caffeine Use: Reports: Coffee - Recreational Drug Use Recreational Drug Use: No ED ROS GENERAL - Review of Systems Review Of Systems: ROS reveals no pertinent complaints other than HPI. ED EXAM, GI/ABD - Physical Exam Exam: See Below Exam Limited By: No Limitations General Appearance: Alert, WD/WN, No Apparent Distress Rectal (Males) Exam: Other (about 1 cm polyp or internal hemorrhoid just inside right side of anus about 2 cm. Firm. pedunculated. Large amount firm stool about 8 cm inside rectum. Too deep for digital extraction.) Course - Vital Signs Last Recorded V/S: Last Vital Signs Temp 36.6 C 07/28/18 18:55 Pulse 90 07/28/18 18:55 Resp 16 07/28/18 18:55 BP 129/57 L 07/28/18 18:55 Pulse Ox 92 L 07/28/18 18:55 Departure - Departure Time of Disposition: 19:22 Disposition: Home, Self-Care 01 Condition: Fair Clinical Impression: Constipation, Rectal polyp - Discharge Information Referrals: Xander Machado MD [Primary Care Provider] - Additional Instructions: Use a Fleets enema tonight. Repeat as needed. The one with mineral oil may be best. Use a laxative like Milk of Magnesia and be sure to drink lots of water. You have a small mass inside the rectum that is probably a polyp and should be checked by your doctor or surgeon. Polyps can turn into cancer.
== END 2018-07-28 19:38 | disposition home or self-care (01) ==
LOC: JP.ED 18:32
DX: K62.1 Rectal polyp (principal); E11.9 Type 2 diabetes mellitus without complications; K59.00 Constipation, unspecified; Z91.013 Allergy to seafood; Z88.8 Allergy status to other drugs, medicaments and biological substances; Z79.899 Other long term (current) drug therapy; Z87.891 Personal history of nicotine dependence
CPT/HCPCS: 99284

== ENCOUNTER 2019-01-26 18:00 | Emergency (ER) | payer MEDICARE ==
[2019-01-26] MEDS ORDERED: Sodium Chloride 0.9% 10 ML Syringe FLUSH PRN (18:49)
--- NOTE | 2019-01-26 18:54 | EDM.PDOC ---
ED HPI GENERAL MEDICAL PROBLEM - General Chief Complaint: Respiratory Problem Stated Complaint: SOB Time Seen by Provider: 01/26/19 18:35 Source of Information: Reports: Patient, Old Records, RN History Limitations: Reports: No Limitations - History of Present Illness INITIAL COMMENTS - FREE TEXT/NARRATIVE: 78 yo male with a pHx of CRF on dialysis presents with a cough that began yesterday that has worsened today associated SOB. His cough in productive of some faint yellow sputum that is thin. No fever. Has no hx of pneumonia or chronic lung dz. Got a little oxygen during today's dialysis run and it made him feel better. His muscogee RLE is not more swollen than usual(prosthesis on right). He is not aware of orthopnea. Onset: Gradual Onset Date: 01/25/19 Duration: Day(s): (1+), Getting Worse Location: Reports: Chest Quality: Reports: Other (no pain) Severity: Moderate Improves with: Reports: Rest Worsens with: Reports: Movement (exertion) Context: Reports: Other (see HPI) Associated Symptoms: Reports: Cough, Shortness of Breath. Denies: Chest Pain, Diaphoresis, Fever/Chills, Nausea/Vomiting, Rash Treatments COMMUNITY AFFAIRS DIRECTOR: Reports: Oxygen (at dialysis) - Related Data Allergies Allergy/AdvReac Type Severity Reaction Status Date / Time Fish Containing Products Allergy Severe Anaphylactic Verified 01/26/19 18:25 Shock iodine Allergy Severe Anaphylactic Verified 01/26/19 18:25 Shock benazepril [From Lotensin] Allergy Cough Verified 01/26/19 18:25 lisinopril AdvReac Intermediate Cough Verified 01/26/19 18:25 Home Meds: Home Meds Furosemide 20 mg PO DAILY PRN 03/29/14 [History] Insulin Glarg,Human.Rec.Analog [Lantus] 35 - 40 unit SUBCUT BEDTIME 03/29/14 [ History] Insulin Lispro [Humalog] 15 unit SUBCUT TID 03/29/14 [History] Aspirin [Shoaib Chewable] 81 mg PO ASDIRECTED 08/11/14 [History] diphenhydrAMINE [Benadryl] 50 mg PO BID PRN 09/06/14 [History] Latanoprost 1 drop TOP BID 02/03/18 [History] Prednisone [IJD: Prednisone] 10 mg PO ASDIRECTED 02/03/18 [History] Ondansetron [Zofran ODT] 4 mg PO Q6H PRN #7 tab.dis 05/01/18 [Rx] Pyridostigmine [Mestinon] 90 mg PO TID 05/01/18 [History] Past Medical History HEENT History: Reports: Glaucoma Cardiovascular History: Reports: High Cholesterol, [place], Stents Gastrointestinal History: Reports: Diverticulosis Genitourinary History: Reports: Acute Renal Failure, Chronic Renal Insuffiency, Dialysis Musculoskeletal History: Reports: None Endocrine/Metabolic History: Reports: Diabetes, Type II - Infectious Disease History Infectious Disease History: Reports: Measles - Past Surgical History HEENT Surgical History: Reports: Visual Cardiovascular Surgical History: Reports: Coronary Artery Stent GI Surgical History: Reports: Appendectomy, Colonoscopy Musculoskeletal Surgical History: Reports: Amputation Other Musculoskeletal Surgeries/Procedures:: RBK Social & Family History - Tobacco Use Smoking Status *Q: Former Smoker Used Tobacco, but Quit: Yes Month/Year Tobacco Last Used: 0 - Caffeine Use Caffeine Use: Reports: Coffee, Soda - Alcohol Use Days Per Week of Alcohol Use: 7 Number of Drinks Per Day: 1 Total Drinks Per Week: 7 - Recreational Drug Use Recreational Drug Use: No ED ROS GENERAL - Review of Systems Review Of Systems: See Below Constitutional: Reports: No Symptoms HEENT: Reports: No Symptoms Respiratory: Reports: Shortness of Breath, Cough, Sputum. Denies: Wheezing, Pleuritic Chest Pain, Hemoptysis Cardiovascular: Reports: No Symptoms Endocrine: Reports: No Symptoms GI/Abdominal: Reports: No Symptoms : Reports: No Symptoms Musculoskeletal: Reports: No Symptoms Skin: Reports: No Symptoms Neurological: Reports: No Symptoms Psychiatric: Reports: No Symptoms ED EXAM, GENERAL - Physical Exam Exam: See Below Exam Limited By: No Limitations General Appearance: Alert, WD/WN, No Apparent Distress Eye Exam: Bilateral Eye: Normal Inspection Ears: Normal External Exam, Normal Canal, Hearing Grossly Normal Ear Exam: Bilateral Ear: Auricle Normal, Canal Normal Nose: Normal Inspection, Normal Mucosa, No Blood Throat/Mouth: Normal Inspection, Normal Lips, Normal Oropharynx, Normal Voice, No Airway Compromise Head: Atraumatic, Normocephalic Neck: Normal Inspection Respiratory/Chest: No Accessory Muscle Use, Chest Non-Tender, Decreased Breath Sounds (at bases bilaterally), Rhonchi (about mid lung field bilaterally), Other (minimal tachypnea at rest. ). No: Crackles, Rales, Wheezing, Stridor, Pleural Rub, Accessory Muscle Use, Retractions Cardiovascular: Regular Rate, Rhythm, Other (trace edemal to the LLE below the knee.) GI/Abdominal: Normal Bowel Sounds, Soft, Non-Tender, No Distention Back Exam: Normal Inspection. No: CVA Tenderness (R), CVA Tenderness (L) Extremities: Normal Range of Motion, Non-Tender, Pedal Edema (trace). No: No Pedal Edema Neurological: Alert, Oriented, CN II-XII Intact, Normal Cognition, No Motor/ Sensory Deficits Psychiatric: Normal Affect, Normal Mood Skin Exam: Warm, Dry, Intact, Normal Color, No Rash Course - Vital Signs Text/Narrative:: Much improved air movement and improvement of dyspnea after albuterol. Last Recorded V/S: Last Vital Signs Temp 36.0 C 01/26/19 18:21 Pulse 86 01/26/19 20:36 Resp 18 01/26/19 20:36 BP 126/42 L 01/26/19 20:36 Pulse Ox 93 L 01/26/19 20:36 - Orders/Labs/Meds Orders: Active Orders 24 hr Category Date Time Status POC Glucose [Blood Glucose Check, Bedside] [RC] ONETIME Care 01/26/19 20:11 Inactive POC Labs [RC] ASDIRECTED Care 01/26/19 20:33 Inactive RT Aerosol Therapy [RC] ASDIRECTED Care 01/26/19 19:15 Active Sodium Chloride 0.9% [Saline Flush] Med 01/26/19 18:49 Active 10 ml FLUSH ASDIRECTED PRN Saline Lock Insert [OM.PC] Routine Oth 01/26/19 18:49 Ordered Medication Orders Sodium Chloride (Saline Flush) 10 ml FLUSH ASDIRECTED PRN PRN Reason: Keep Vein Open Labs: Laboratory Tests 01/26/19 01/26/19 01/26/19 Range/Units 19:00 19:00 19:11 WBC 10.3 (4.5-11.0) K/uL RBC 4.17 L (4.30-5.90) M/uL Hgb 12.8 (12.0-15.0) g/dL Hct 40.8 (40.0-54.0) % MCV 98 (80-98) fL MCH 31 (27-31) pg MCHC 31 L (32-36) % Plt Count 312 (150-400) K/uL D-Dimer, Quantitative 599 H (0.0-400.0) ng/mL Sodium 136 L (140-148) mmol/L Potassium 4.8 (3.6-5.2) mmol/L Chloride 98 L (100-108) mmol/L Carbon Dioxide 31 (21-32) mmol/L Anion Gap 11.8 (5.0-14.0) mmol/L BUN 16 D (7-18) mg/dL Creatinine 3.5 H (0.8-1.3) mg/dL Est Cr Clr Drug Dosing 18.83 mL/min Estimated GFR (MDRD) 17 L (>60) Glucose 101 (74-106) mg/dL Calcium 9.1 (8.5-10.1) mg/dL Troponin I < 0.017 (0.000-0.056) ng/mL Meds: Medications Generic Name Dose Route Start Last Admin Trade Name Freq PRN Reason Stop Dose Admin Sodium Chloride 10 ml 01/26/19 18:49 Saline Flush FLUSH ASDIRECTED PRN Keep Vein Open Discontinued Medications Generic Name Dose Route Start Last Admin Trade Name Freq PRN Reason Stop Dose Admin Albuterol 2.5 mg 01/26/19 19:15 01/26/19 19:20 Proventil Neb Soln NEB 01/26/19 19:16 2.5 mg ONETIME ONE Administration Doxycycline Hyclate 100 mg 01/26/19 21:37 Vibramycin PO 01/26/19 21:38 ONETIME ONE Ondansetron HCl 4 mg 01/26/19 19:46 01/26/19 19:52 Zofran Odt PO 01/26/19 19:47 4 mg ONETIME ONE Administration - Radiology Interpretation Free Text/Narrative:: CXR-neg Departure - Departure Time of Disposition: 21:50 Disposition: Home, Self-Care 01 Condition: Fair Clinical Impression: Bronchitis, Bronchospasm - Discharge Information *PRESCRIPTION DRUG MONITORING PROGRAM REVIEWED*: No *COPY OF PRESCRIPTION DRUG MONITORING REPORT IN PATIENT YARED: No Instructions: Acute Bronchitis, Adult, [id number], Bronchospasm, Adult, Easy- to-Read Referrals: Xander Machado MD [Primary Care Provider] - Forms: ED Department Discharge Additional Instructions: Take doxycycline every 12 hrs until gone. Use albuterol inhaler every 4 hrs as needed for cough/wheezing/SOB. Recheck in the clinic with your doctor early in the week. Return if worse. - My Orders Last 24 Hours: My Active Orders 01/26/19 18:49 Sodium Chloride 0.9% [Saline Flush] 10 ml FLUSH ASDIRECTED PRN Saline Lock Insert [OM.PC] Routine 01/26/19 19:15 RT Aerosol Therapy [RC] ASDIRECTED 01/26/19 20:11 POC Glucose [Blood Glucose Check, Bedside] [RC] ONETIME 01/26/19 20:33 POC Labs [RC] ASDIRECTED - Assessment/Plan Last 24 Hours: My Active Orders 01/26/19 18:49 Sodium Chloride 0.9% [Saline Flush] 10 ml FLUSH ASDIRECTED PRN Saline Lock Insert [OM.PC] Routine 01/26/19 19:15 RT Aerosol Therapy [RC] ASDIRECTED 01/26/19 20:11 POC Glucose [Blood Glucose Check, Bedside] [RC] ONETIME 01/26/19 20:33 POC Labs [RC] ASDIRECTED
[2019-01-26] MEDS ORDERED: Albuterol 0.083% 2.5 MG/3 ML Neb Soln NEB ONE (19:15)
--- NOTE | 2019-01-26 19:41 | CRLCR ---
INDICATION: cough, SOB TECHNIQUE: Chest 2 views. COMPARISON: 09/15/18 FINDINGS: Cardiovascular and mediastinum: Heart size and vasculature are normal in caliber and appearance. Mediastinum is within normal limits. Lungs and pleural spaces: Lungs are clear. No sign of infiltrate or mass. No sign of pleural effusion. No pneumothorax. Bones and soft tissues: No significant findings. IMPRESSION: Unremarkable chest. Dictated by: Tomer Hsu MD @ 01/26/2019 19:39:20 (Electronically Signed)
[2019-01-26] MEDS ORDERED: Ondansetron 4 MG Tab.DIS PO ONE (19:46)
[2019-01-26 20:37] VITALS: BP 126/42
[2019-01-26] MEDS ORDERED: Doxycycline 100 MG Cap PO ONE ×2 (21:37→21:49)
[2019-01-26] MEDS ORDERED: Albuterol 8 GM Inhaler INH ONE ×2 (21:51)
== END 2019-01-26 22:00 | disposition home or self-care (01) ==
LOC: JP.ED 18:00
DX: J40 Bronchitis, not specified as acute or chronic (principal); E78.00 Pure hypercholesterolemia, unspecified; E11.22 Type 2 diabetes mellitus with diabetic chronic kidney disease; N18.9 Chronic kidney disease, unspecified; Z87.891 Personal history of nicotine dependence; Z91.013 Allergy to seafood; Z88.8 Allergy status to other drugs, medicaments and biological substances; Z79.899 Other long term (current) drug therapy; Z79.4 Long term (current) use of insulin
CPT/HCPCS: 36415; 71046; 80048; 82962; 84484; 85027; 85379; 94640; 99285; A9270

== ENCOUNTER 2019-02-23 10:35 | Emergency (ER) | payer MEDICARE ==
[2019-02-23 11:00] VITALS: BP 169/78
--- NOTE | 2019-02-23 11:53 | EDM.PDOC ---
ED HPI GENERAL MEDICAL PROBLEM - General Chief Complaint: Gastrointestinal Problem Stated Complaint: DIARRHEA SINCE YESTERDAY Time Seen by Provider: 02/23/19 11:48 Source of Information: Reports: Patient History Limitations: Reports: No Limitations - History of Present Illness INITIAL COMMENTS - FREE TEXT/NARRATIVE: This gentleman complains of diarrhea that started yesterday after eating a waffle. It started with a soft stool about 10:30 and then followed by loose stools. Not actually watery diarrhea. He had about 15 trips to the bathroom last night. This morning he ate a banana and 10 minutes later he was in the bathroom with with this soft stool. He wonders if eating some old salami several days ago might of consciousness. He denies any fever there are no cramps he denies any bloody stool. Blood sugar is a little bit low this morning it was 109. He tried taking some Pepto-Bismol that didn't help. Has not tried any Imodium - Related Data Allergies Allergy/AdvReac Type Severity Reaction Status Date / Time Fish Containing Products Allergy Severe Anaphylactic Verified 02/23/19 11:00 Shock iodine Allergy Severe Anaphylactic Verified 02/23/19 11:00 Shock lisinopril AdvReac Intermediate Cough Verified 02/23/19 11:00 benazepril [From Lotensin] AdvReac Cough Verified 02/23/19 11:00 Home Meds: Home Meds Furosemide 20 mg PO DAILY PRN 03/29/14 [History] Insulin Glarg,Human.Rec.Analog [Lantus] 35 - 40 unit SUBCUT BEDTIME 03/29/14 [ History] Insulin Lispro [Humalog] 15 unit SUBCUT TID 03/29/14 [History] Aspirin [Shoaib Chewable] 81 mg PO ASDIRECTED 08/11/14 [History] diphenhydrAMINE [Benadryl] 50 mg PO BID PRN 09/06/14 [History] Latanoprost 1 drop TOP BID 02/03/18 [History] Prednisone [IJD: Prednisone] 10 mg PO ASDIRECTED 02/03/18 [History] Pyridostigmine [Mestinon] 90 mg PO TID 05/01/18 [History] Past Medical History HEENT History: Reports: Glaucoma Cardiovascular History: Reports: [place], Stents Respiratory History: Reports: Other (See Below) Other Respiratory History: consistant cough since 2005 Gastrointestinal History: Reports: Diverticulosis Genitourinary History: Reports: Acute Renal Failure, Chronic Renal Insuffiency, Dialysis Musculoskeletal History: Reports: None Endocrine/Metabolic History: Reports: Diabetes, Type II Dermatologic History: Reports: Other (See Below) Other Dermatologic History: itchy - Infectious Disease History Infectious Disease History: Reports: Measles - Past Surgical History Head Surgeries/Procedures: Reports: None HEENT Surgical History: Reports: Visual Cardiovascular Surgical History: Reports: Coronary Artery Stent Respiratory Surgical History: Reports: None GI Surgical History: Reports: Appendectomy, Colonoscopy Male Surgical History: Reports: None Endocrine Surgical History: Reports: None Musculoskeletal Surgical History: Reports: Amputation Other Musculoskeletal Surgeries/Procedures:: RBK Dermatological Surgical History: Reports: None Social & Family History - Family History Family Medical History: Noncontributory - Tobacco Use Smoking Status *Q: Former Smoker Years of Tobacco use: 50 Packs/Tins Daily: 3 Used Tobacco, but Quit: Yes Month/Year Tobacco Last Used: april 1993 Second Hand Smoke Exposure: No - Caffeine Use Caffeine Use: Reports: Coffee, Soda, Tea - Alcohol Use Days Per Week of Alcohol Use: 7 Number of Drinks Per Day: 1 Total Drinks Per Week: 7 Date of Last Drink: 02/21/19 Time of Last Drink: 18:00 - Recreational Drug Use Recreational Drug Use: No ED ROS GENERAL - Review of Systems Review Of Systems: ROS reveals no pertinent complaints other than HPI. ED EXAM, GI/ABD - Physical Exam Exam: See Below Exam Limited By: No Limitations General Appearance: Alert, WD/WN, No Apparent Distress Eyes: Bilateral: Normal Appearance Respiratory/Chest: No Respiratory Distress, Lungs Clear Cardiovascular: Regular Rate, Rhythm GI/Abdominal Exam: Normal Bowel Sounds, Soft, Non-Tender Extremities: Normal Inspection Neurological: Alert, Oriented Psychiatric: Normal Affect Course - Vital Signs Last Recorded V/S: Last Vital Signs Temp 35.7 C 02/23/19 10:59 Pulse 78 02/23/19 10:59 Resp 12 02/23/19 10:59 BP 169/78 H 02/23/19 10:59 Pulse Ox 96 02/23/19 10:59 Departure - Departure Time of Disposition: 11:50 Disposition: Home, Self-Care 01 Condition: Fair Clinical Impression: Diarrhea - Discharge Information Referrals: PCP,None [Primary Care Provider] - Additional Instructions: You received a prescription for Lomotil No. 15 tablets. This has a mild narcotic in it. It helps a lot with diarrhea and cramps. It can cause some sedation and impaired driving. If you prefer, instead of taking Lomotil you could take the [id number] medication Imodium or loperamide. Just follow the package instructions. Don't take Imodium and Lomotil at the same time however. Clear liquid diet for the next 12-24 hours. If no better in a few days then see your
== END 2019-02-23 12:18 | disposition home or self-care (01) ==
LOC: JP.ED 10:35
DX: R19.7 Diarrhea, unspecified (principal); E11.22 Type 2 diabetes mellitus with diabetic chronic kidney disease; Z79.4 Long term (current) use of insulin; Z79.899 Other long term (current) drug therapy; Z91.013 Allergy to seafood; Z88.8 Allergy status to other drugs, medicaments and biological substances
CPT/HCPCS: 99283

== ENCOUNTER 2019-03-03 19:13 | Emergency (ER) | payer MEDICARE ==
--- NOTE | 2019-03-03 20:13 | EDM.PDOC ---
ED HPI GENERAL MEDICAL PROBLEM - General Chief Complaint: Respiratory Problem Stated Complaint: HASNT EATEN FOR A WEEK, BAD COUGH Time Seen by Provider: 03/03/19 20:03 Source of Information: Reports: Patient, RN Notes Reviewed History Limitations: Reports: No Limitations - History of Present Illness INITIAL COMMENTS - FREE TEXT/NARRATIVE: 78-year-old gentleman presents emergency department today complaint of shortness of breath, weakness and poor oral intake, he states over the last week he's not been able to eat. Well because he has a poor appetite he gets more short of breath when he lies down he sits up in a chair at night to sleep and he has had a dry cough, he is on dialysis last dialysis was Tuesday stated went well - Related Data Allergies Allergy/AdvReac Type Severity Reaction Status Date / Time Fish Containing Products Allergy Severe Anaphylactic Verified 03/03/19 19:49 Shock iodine Allergy Severe Anaphylactic Verified 03/03/19 19:49 Shock lisinopril AdvReac Intermediate Cough Verified 03/03/19 19:49 benazepril [From Lotensin] AdvReac Cough Verified 03/03/19 19:49 Home Meds: Home Meds Furosemide 20 mg PO DAILY PRN 03/29/14 [History] Insulin Glarg,Human.Rec.Analog [Lantus] 32 unit SUBCUT BEDTIME 03/29/14 [History ] Insulin Lispro [Humalog] 0 - 15 unit SUBCUT TID 03/29/14 [History] Aspirin [Shoaib Chewable] 81 mg PO ASDIRECTED 08/11/14 [History] diphenhydrAMINE [Benadryl] 50 mg PO BID PRN 09/06/14 [History] Latanoprost 1 drop TOP BEDTIME 02/03/18 [History] Prednisone [IJD: Prednisone] 10 mg PO ASDIRECTED 02/03/18 [History] Pyridostigmine [Mestinon] 90 mg PO TID 05/01/18 [History] Brimonidine Tartrate [Alphagan P 0.1% Ophth Soln] 1 drop EYEBOTH BID 03/03/19 [ History] Calcium Acetate [PhosLo] 1 cap PO TIDMEALS 03/03/19 [History] Carvedilol 1 tab PO BID 03/03/19 [History] Past Medical History HEENT History: Reports: Cataract, Glaucoma Cardiovascular History: Reports: CAD, [place], Stents Respiratory History: Reports: Other (See Below) Other Respiratory History: consistant cough since 2005 Gastrointestinal History: Reports: Diverticulosis Genitourinary History: Reports: Acute Renal Failure, Chronic Renal Insuffiency, Dialysis Musculoskeletal History: Reports: None Endocrine/Metabolic History: Reports: Diabetes, Type II Dermatologic History: Reports: Other (See Below) Other Dermatologic History: itchy - Infectious Disease History Infectious Disease History: Reports: Measles - Past Surgical History Head Surgeries/Procedures: Reports: None HEENT Surgical History: Reports: Cataract Surgery, Eye Surgery, Laser Surgery, Visual Cardiovascular Surgical History: Reports: Coronary Artery Stent Respiratory Surgical History: Reports: None GI Surgical History: Reports: Appendectomy, Colonoscopy Male Surgical History: Reports: None Endocrine Surgical History: Reports: None Musculoskeletal Surgical History: Reports: Amputation Other Musculoskeletal Surgeries/Procedures:: RBK Dermatological Surgical History: Reports: None Social & Family History - Family History Family Medical History: Noncontributory - Tobacco Use Smoking Status *Q: Former Smoker Used Tobacco, but Quit: Yes Month/Year Tobacco Last Used: 1992 - Caffeine Use Caffeine Use: Reports: Coffee - Alcohol Use Days Per Week of Alcohol Use: 7 Number of Drinks Per Day: 1 Total Drinks Per Week: 7 - Recreational Drug Use Recreational Drug Use: No ED ROS GENERAL - Review of Systems Review Of Systems: See Below Constitutional: Reports: Weakness HEENT: Reports: No Symptoms Respiratory: Reports: Shortness of Breath, Cough Cardiovascular: Reports: Dyspnea on Exertion GI/Abdominal: Reports: No Symptoms : Reports: No Symptoms Musculoskeletal: Reports: No Symptoms Skin: Reports: No Symptoms Neurological: Reports: No Symptoms ED EXAM, GENERAL - Physical Exam Exam: See Below Exam Limited By: No Limitations General Appearance: Alert, WD/WN, No Apparent Distress Eye Exam: Bilateral Eye: Normal Inspection Head: Atraumatic, Normocephalic Neck: Normal Inspection, Supple, Non-Tender, Full Range of Motion Respiratory/Chest: No Respiratory Distress, Lungs Clear, Normal Breath Sounds, No Accessory Muscle Use, Chest Non-Tender Cardiovascular: Regular Rate, Rhythm, No Murmur GI/Abdominal: Soft, Non-Tender Course - Vital Signs Last Recorded V/S: Last Vital Signs Temp 96.8 F 03/03/19 19:50 Pulse 70 04/27/19 21:39 Resp 17 03/03/19 21:39 BP 185/80 H 03/03/19 21:39 Pulse Ox 95 03/03/19 21:39 - Orders/Labs/Meds Orders: Active Orders 24 hr Category Date Time Status Cardiac Monitoring [RC] .As Directed Care 03/03/19 20:09 Active EKG Documentation Completion [RC] ASDIRECTED Care 03/03/19 20:13 Active Peripheral IV Care [RC] . DIRECTED Care 03/03/19 21:30 Active Peripheral IV Insertion Adult [OM.PC] Urgent Oth 03/03/19 21:30 Ordered EKG 12 Lead [EK] Stat Ther 03/03/19 20:13 Ordered Labs: Laboratory Tests 03/03/19 03/03/19 03/03/19 Range/Units 20:22 20:22 20:22 WBC 13.9 H (4.5-11.0) K/uL RBC 3.89 L (4.30-5.90) M/uL Hgb 12.0 (12.0-15.0) g/dL Hct 38.3 L (40.0-54.0) % MCV 99 H (80-98) fL MCH 31 (27-31) pg MCHC 31 L (32-36) % Plt Count 315 (150-400) K/uL Neut % (Auto) 82 H (36-66) % Lymph % (Auto) 7 L (24-44) % Banks % (Auto) 8 H (2-6) % Eos % (Auto) 3 (2-4) % Baso % (Auto) 0 (0-1) % Sodium 138 L (140-148) mmol/L Potassium 4.3 (3.6-5.2) mmol/L Chloride 98 L (100-108) mmol/L Carbon Dioxide 30 (21-32) mmol/L Anion Gap 14.3 H (5.0-14.0) mmol/L BUN 26 H D (7-18) mg/dL Creatinine 4.4 H* (0.8-1.3) mg/dL Est Cr Clr Drug Dosing 14.97 mL/min Estimated GFR (MDRD) 13 L (>60) Glucose 174 H (74-106) mg/dL Lactic Acid 1.5 (0.4-2.0) mmol/L Calcium 8.9 (8.5-10.1) mg/dL Total Bilirubin 1.2 H (0.2-1.0) mg/dL AST 16 (15-37) U/L ALT 22 (12-78) U/L Alkaline Phosphatase 110 (46-116) U/L Troponin I < 0.017 (0.000-0.056) ng/mL NT-Pro-B Natriuret Pep 31969 H (5-450) pg/mL Total Protein 7.2 (6.4-8.2) g/dL Albumin 3.2 L (3.4-5.0) g/dL Globulin 4.0 H (2.3-3.5) g/dL Albumin/Globulin Ratio 0.8 L (1.2-2.2) Meds: Medications Discontinued Medications Generic Name Dose Route Start Last Admin Trade Name Freq PRN Reason Stop Dose Admin Furosemide 80 mg 03/03/19 21:30 03/03/19 21:37 Lasix IVPUSH 03/03/19 21:31 80 mg ONETIME ONE Administration Sodium Chloride 1,000 mls @ 500 mls/hr 03/03/19 23:00 03/03/19 23:10 Normal Saline IV 500 mls/hr ASDIRECTED AUBREY Administration Sodium Chloride 10 ml 03/03/19 21:30 03/03/19 21:38 Saline Flush FLUSH 10 ml ASDIRECTED PRN Administration Keep Vein Open Departure - Departure Time of Disposition: 19:04 Disposition: Home, Self-Care 01 Condition: Poor Clinical Impression: CHF (congestive heart failure) Qualifiers: Heart failure type: other Qualified Code(s): I50.9 - Heart failure, unspecified - Discharge Information Referrals: Xander Machado MD [Primary Care Provider] - Forms: ED Department Discharge - My Orders Last 24 Hours: My Active Orders 03/03/19 20:09 Cardiac Monitoring [RC] .As Directed 03/03/19 20:13 EKG Documentation Completion [RC] ASDIRECTED EKG 12 Lead [EK] Stat 03/03/19 21:30 Peripheral IV Care [RC] . DIRECTED Peripheral IV Insertion Adult [OM.PC] Urgent - Assessment/Plan Last 24 Hours: My Active Orders 03/03/19 20:09 Cardiac Monitoring [RC] .As Directed 03/03/19 20:13 EKG Documentation Completion [RC] ASDIRECTED EKG 12 Lead [EK] Stat 03/03/19 21:30 Peripheral IV Care [RC] . DIRECTED Peripheral IV Insertion Adult [OM.PC] Urgent Plan: ^Assessment Acuity = acute Site and laterality = congestive heart failure complicated patient with end- stage renal disease on dialysis Etiology = probably secondary to medical compliance intermittent use of Lasix Manifestations = dyspnea early satiety Location of injury = Home Lab values = WBC elevated 13.9 consistent leukocytosis, creatinine elevated 4.4 consistent end-stage renal disease stage GV D lactic acid normal at 1.5 total bilirubin elevated 1.2 consistent with hyperbilirubinemia BNP markedly elevated 10,583 consistent with fluid overload type pattern troponin was negative chest x -ray reveals a right hazy opacity inflammatory process versus infectious uncertain etiology Plan I did offer him hospital admission with transfer because of his dialysis state however he declined would like to try the Lasix at home he was given 80 mg Lasix IV with good urine output in the emergency department he'll follow-up with his primary care on Tuesday for further evaluation This note was dictated using [employer] voice recognition software please call with any questions on syntax or grammar.
[2019-03-03] MEDS ORDERED: Furosemide 40 MG/4 ML VIAL IVPUSH ONE (21:30)
[2019-03-03] MEDS ORDERED: Sodium Chloride 0.9% 10 ML Syringe FLUSH PRN (21:30)
[2019-03-03 21:44] VITALS: BP 185/80
--- NOTE | 2019-03-03 21:56 | CRLCR ---
INDICATION: Chest pain. Cough. TECHNIQUE: Chest 2 views. COMPARISON: 01/26/2019, 09/15/2018 FINDINGS: Cardiovascular and mediastinum: Heart size is normal. Pulmonary vasculature is normal. Mediastinum is within normal limits. Lungs and pleural spaces: There is hazy right perihilar opacity. A small nodule in the left lung base is noted. No pleural effusion. No pneumothorax. Bones and soft tissues: No acute findings. IMPRESSION: 1. Hazy right perihilar opacity may represent an infectious or inflammatory process. 2. Small nodular density in the left lung base appears new from radiograph of 2018. Recommend short interval radiographic followup versus non emergent CT depending on risk factors. Dictated by Gilberto Marquez MD @ 03/03/2019 9:53:46 PM Dictated by: Gilberto Marquez MD @ 03/03/2019 21:53:51 (Electronically Signed)
[2019-03-03] MEDS ORDERED: Sodium Chloride 0.9% 1,000 ML IV SCH (23:00)
== END 2019-03-04 01:00 | disposition home or self-care (01) ==
LOC: JP.ED 19:13
DX: I50.9 Heart failure, unspecified (principal); N18.6 End stage renal disease; Z99.2 Dependence on renal dialysis; I25.2 Old myocardial infarction; I25.10 Atherosclerotic heart disease of native coronary artery without angina pectoris; Z91.013 Allergy to seafood; Z88.8 Allergy status to other drugs, medicaments and biological substances; Z79.899 Other long term (current) drug therapy; Z79.4 Long term (current) use of insulin; Z79.82 Long term (current) use of aspirin; Z87.891 Personal history of nicotine dependence; E11.22 Type 2 diabetes mellitus with diabetic chronic kidney disease
CPT/HCPCS: 36415; 71046; 80053; 83605; 83880; 84484; 85025; 93005; 93010; 96361; 96374; 99285; J1940; J7030